=== PATIENT | female | born 1960 | race African-American/Black ===

== ENCOUNTER 2016-07-21 09:41 | Outpatient (CLI) | payer OTHER ==
[2016-07-21 10:39] LABS: Hemoglobin A1c 6.5 % (4.0-6.0)
[2016-07-21 10:41] LABS: ALT (SGPT) 19 U/L (8-55); AST (SGOT) 16 U/L (5-34); Albumin 4.2 g/dL (3.5-5.0); Alkaline Phosphatase 57 U/L (40-150); Anion Gap 15 mmol/L (10-20); BUN (Urea Nitrogen) 13 mg/dL (9.8-20.1); Bilirubin, Total 0.5 mg/dL (0.2-1.2); Calc. Creatinine Clearance 0 mL/min (70-130); Calcium 9.6 mg/dL (7.8-10.44); Carbon Dioxide 22 mmol/L (22-29); Cardiac Risk 5.2 (Less than 4.5); Chloride 106 mmol/L (98-107); Cholesterol 215 mg/dl (< 200 Desired); Estimated GFR-MDRD 78; Glucose 147 mg/dL (70-105); HDL Cholesterol 41 mg/dL (>60 Neg Risk); LDL Cholesterol, Calculated 131 mg/dL; Potassium 3.9 mmol/L (3.5-5.1); Protein, Total 7.2 g/dL (6.0-8.3); Sodium 139 mmol/L (136-145); Triglycerides 217 mg/dL (Less than 150)
[2016-07-21 10:57] LABS: Thyroid Stimulating Hormone 1.8353 uIU/mL (0.35-4.94); Vitamin D, 25 Hydroxy 19.2 ng/ml (> 30.0)
[2016-07-21 11:00] LABS: Bilirubin Negative (Negative); Blood, Urine Negative (Negative); Clarity Clear (Clear); Glucose, Urine (Dipstick) Negative (Negative); Leukocyte Negative (Negative); Nitrite Negative (Negative); Protein, Urine (Dipstick) Negative (Neg-Trace); Urobilinogen 0.2 mg/dL (0.2-1.0)
[2016-07-21 11:01] LABS: Bacteria/HPF Rare-Few HPF (None Seen); RBC/HPF 0-3 HPF (0-3); Squamous Epithelial 0-3 HPF (0-3); WBC/HPF None Seen HPF (0-3)
[2016-07-21 11:08] LABS: #Basophils 0.1 thou/uL (0.0-0.2); #Eosinphils 0.2 thou/uL (0.0-0.7); #Lymphocytes 2.4 thou/uL (1.20-3.40); #Monocytes 0.3 thou/uL (0.11-0.59); #Neutrophils 3.1 thou/uL (1.40-6.50); %Eosinophils 3.6 % (0.0-10.0); %Lymphocytes 39.1 % (21.0-51.0); %Monocytes 5.5 % (0.0-10.0); %Neutrophils 50.8 % (42.0-75.0); Hemoglobin 15.1 g/dL (12.0-16.0); Mean Corpuscular Hemoglobin 33.5 pg (27.0-31.0); Mean Corpuscular Volume 92.8 fl (81.0-99.0); Mean Platelet Volume 9.4 fL (7.4-10.4); Platelet Count 208 thou/uL (130-400); RBC Distribution Width 11.4 % (11.5-14.5); Red Blood Cell (RBC) Count 4.52 mill/uL (4.20-5.40); White Blood Cell (WBC) Count 6.1 thou/uL (4.8-10.8)
== END 2016-07-21 09:42 | disposition home or self-care (01) ==
LOC: MADLABBHPM 09:41
PROVIDERS: ATTEND Family Medicine
DX: E78.5 Hyperlipidemia, unspecified (principal); R73.03 Prediabetes; F17.200 Nicotine dependence, unspecified, uncomplicated; F32.9 Major depressive disorder, single episode, unspecified; I10 Essential (primary) hypertension
CPT/HCPCS: 36415; 80053; 80061; 81001; 82306; 83036; 84443; 85025

== ENCOUNTER 2016-09-27 18:31 | Emergency (ER) | payer OTHER ==
[~2016-09-27 18:31] MED LIST: Sodium Chloride 0.9% 1,000 ML BAG ONE
[2016-09-27 19:07] LABS: Bilirubin Negative (Negative); Blood, Urine Trace (Negative); Clarity Hazy (Clear); Glucose, Urine (Dipstick) 500 mg/dL (Negative); Leukocyte Negative (Negative); Nitrite Negative (Negative); Protein, Urine (Dipstick) Negative (Neg-Trace); Urobilinogen 0.2 mg/dL (0.2-1.0)
[2016-09-27 19:15] LABS: Bacteria/HPF Rare-Few HPF (None Seen); RBC/HPF 0-3 HPF (0-3); Trichomonas/HPF Rare HPF (None Seen); WBC/HPF 0-3 HPF (0-3)
[2016-09-27] MEDS ORDERED: metroNIDAZOLE 250 MG TAB ONE (19:44)
[2016-09-27 19:53] LABS: ALT (SGPT) 17 U/L (8-55); AST (SGOT) 12 U/L (5-34); Albumin 4.1 g/dL (3.5-5.0); Alkaline Phosphatase 65 U/L (40-150); Anion Gap 18 mmol/L (10-20); BUN (Urea Nitrogen) 16 mg/dL (9.8-20.1); Bilirubin, Total 0.3 mg/dL (0.2-1.2); Calc. Creatinine Clearance 0 mL/min (70-130); Calcium 9.8 mg/dL (7.8-10.44); Carbon Dioxide 22 mmol/L (22-29); Chloride 99 mmol/L (98-107); Estimated GFR-MDRD 45; Globulin 3.6 g/dL (2.4-3.5); Glucose 441 mg/dL (70-105); Potassium 3.5 mmol/L (3.5-5.1); Protein, Total 7.7 g/dL (6.0-8.3); Sodium 135 mmol/L (136-145)
[2016-09-27 19:57] LABS: Lymphocytes 36 % (21-51); MDiff Complete? YES; Mean Corpuscular HGB CONC 35.1 g/dL (32.0-36.0); Mean Corpuscular Hemoglobin 32.7 pg (27.0-31.0); Mean Corpuscular Volume 93.2 fl (81.0-99.0); Mean Platelet Volume 9.1 fL (7.4-10.4); Monocytes 4 % (0-10); Neutrophil 60 % (42-75); PLT Morphology Comment Appears Adequate; Platelet Count 226 thou/uL (130-400); RBC Distribution Width 11.3 % (11.5-14.5); Red Blood Cell (RBC) Count 3.98 mill/uL (4.20-5.40); White Blood Cell (WBC) Count 7.7 thou/uL (4.8-10.8)
== END 2016-09-27 20:48 | disposition home or self-care (01) ==
LOC: MADERS 18:31
DX: E11.65 Type 2 diabetes mellitus with hyperglycemia (principal); E78.5 Hyperlipidemia, unspecified; I10 Essential (primary) hypertension; F17.210 Nicotine dependence, cigarettes, uncomplicated; Z79.899 Other long term (current) drug therapy
CPT/HCPCS: 36416; 80053; 81001; 85025; 96360; J7050

== ENCOUNTER 2016-09-28 17:13 | Emergency (ER) | payer OTHER ==
[2016-09-28] MEDS ORDERED: Insulin Regular 300 UNITS/3 ML VIAL ONE (18:02)
== END 2016-09-28 19:31 | disposition home or self-care (01) ==
LOC: MADERS 17:13
DX: E11.01 Type 2 diabetes mellitus with hyperosmolarity with coma (principal); A59.9 Trichomoniasis, unspecified; E78.5 Hyperlipidemia, unspecified; I10 Essential (primary) hypertension; F17.210 Nicotine dependence, cigarettes, uncomplicated; Z79.899 Other long term (current) drug therapy
CPT/HCPCS: 36416; 99284; J1815

== ENCOUNTER 2016-09-29 09:14 | Outpatient (CLI) | payer OTHER ==
[2016-09-29 09:39] LABS: Hemoglobin A1c 9.2 % (4.0-6.0)
[2016-09-29 09:46] LABS: Cardiac Risk 6.1 (Less than 4.5)
== END 2016-09-29 09:15 | disposition home or self-care (01) ==
LOC: MADLABBHPM 09:14
PROVIDERS: ATTEND Family Medicine
DX: E78.2 Mixed hyperlipidemia (principal); E11.9 Type 2 diabetes mellitus without complications
CPT/HCPCS: 36415; 80061; 83036

== ENCOUNTER 2016-10-14 14:05 | Emergency (ER) | payer OTHER ==
[2016-10-14 15:12] LABS: #Basophils 0.1 thou/uL (0.0-0.2); #Eosinphils 0.2 thou/uL (0.0-0.7); #Lymphocytes 2.4 thou/uL (1.20-3.40); #Monocytes 0.4 thou/uL (0.11-0.59); #Neutrophils 4.6 thou/uL (1.40-6.50); %Eosinophils 2.6 % (0.0-10.0); %Lymphocytes 31.9 % (21.0-51.0); %Monocytes 4.7 % (0.0-10.0); %Neutrophils 59.8 % (42.0-75.0); Hemoglobin 12.4 g/dL (12.0-16.0); Mean Corpuscular HGB CONC 35.2 g/dL (32.0-36.0); Mean Corpuscular Hemoglobin 32.4 pg (27.0-31.0); Mean Platelet Volume 7.7 fL (7.4-10.4); Platelet Count 249 thou/uL (130-400); RBC Distribution Width 10.9 % (11.5-14.5); Red Blood Cell (RBC) Count 3.84 mill/uL (4.20-5.40); White Blood Cell (WBC) Count 7.6 thou/uL (4.8-10.8)
[2016-10-14 15:15] LABS: PTT 28.2 SEC (22.9-36.1)
[2016-10-14 15:16] LABS: INR-International Normal Ratio 1.2; Prothrombin Time 15.7 SEC (12.0-14.7)
[2016-10-14 15:25] LABS: ALT (SGPT) 17 U/L (8-55); AST (SGOT) 12 U/L (5-34); Albumin 4.2 g/dL (3.5-5.0); Alkaline Phosphatase 54 U/L (40-150); Anion Gap 14 mmol/L (10-20); BUN (Urea Nitrogen) 11 mg/dL (9.8-20.1); Bilirubin, Total 0.6 mg/dL (0.2-1.2); Calc. Creatinine Clearance 0 mL/min (70-130); Calcium 9.7 mg/dL (7.8-10.44); Carbon Dioxide 24 mmol/L (22-29); Chloride 103 mmol/L (98-107); Estimated GFR-MDRD 62; Globulin 3.5 g/dL (2.4-3.5); Glucose 172 mg/dL (70-105); Magnesium 1.8 mg/dL (1.6-2.6); Potassium 3.2 mmol/L (3.5-5.1); Protein, Total 7.7 g/dL (6.0-8.3); Sodium 138 mmol/L (136-145)
--- NOTE | 2016-10-14 15:26 | RAD ---
PORTABLE CHEST: History: Dizziness, vomiting. Comparison: 08-02-14 FINDINGS: Heart size and mediastinum are within normal limits. Lungs are clear of infiltrates. No signs of asp iration. IMPRESSION: No active intrathoracic disease. POS: [facility]
[2016-10-14 16:01] LABS: Clarity Clear (Clear)
[2016-10-14 16:02] LABS: Bacteria/HPF Rare-Few HPF (None Seen); Bilirubin Negative (Negative); Blood, Urine Negative (Negative); Glucose, Urine (Dipstick) Negative (Negative); Leukocyte Negative (Negative); Nitrite Negative (Negative); Protein, Urine (Dipstick) Negative (Neg-Trace); RBC/HPF 0-3 HPF (0-3); Specific Gravity, Urine 1.005 (1.002-1.036); Squamous Epithelial 0-3 HPF (0-3); Urobilinogen 0.2 mg/dL (0.2-1.0); WBC/HPF None Seen HPF (0-3)
== END 2016-10-14 18:30 | disposition home or self-care (01) ==
LOC: MADERS 14:05
DX: E87.6 Hypokalemia (principal); E11.9 Type 2 diabetes mellitus without complications; E78.5 Hyperlipidemia, unspecified; I10 Essential (primary) hypertension; F17.210 Nicotine dependence, cigarettes, uncomplicated
CPT/HCPCS: 36416; 71010; 80053; 81001; 83735; 83880; 85025; 85610; 85730; 87086; 93005; 94760

== ENCOUNTER 2016-11-11 17:06 | Emergency (ER) | payer OTHER | END 2016-11-11 17:40 | disposition home or self-care (01) | LOC: MADERS 17:06 | DX: S39.92XA Unspecified injury of lower back, initial encounter (principal); E11.9 Type 2 diabetes mellitus without complications; E78.5 Hyperlipidemia, unspecified; I10 Essential (primary) hypertension; F17.210 Nicotine dependence, cigarettes, uncomplicated; Z79.84 Long term (current) use of oral hypoglycemic drugs; Z79.899 Other long term (current) drug therapy; Y04.8XXA Assault by other bodily force, initial encounter | CPT/HCPCS: 99283 ==

== ENCOUNTER 2017-04-04 12:31 | Outpatient (CLI) | payer OTHER ==
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
== END 2017-04-04 12:32 | disposition home or self-care (01) ==
LOC: MADRAD 12:31
PROVIDERS: ATTEND Family Medicine
DX: M47.26 Other spondylosis with radiculopathy, lumbar region (principal); M43.16 Spondylolisthesis, lumbar region
CPT/HCPCS: 72100

== ENCOUNTER 2017-08-05 14:11 | Emergency (ER) | payer OTHER ==
[2017-08-05] MEDS ORDERED: Tetracaine 0.5% OPHTH SOLN/PF 4 ML BOT ONE (14:33)
[2017-08-05] MEDS ORDERED: Tobramycin Sulfate 0.3% Ophth Susp 5 ml Bottle ONE (14:51)
== END 2017-08-05 14:50 | disposition home or self-care (01) ==
LOC: MADERS 14:11
DX: S05.02XA Injury of conjunctiva and corneal abrasion without foreign body, left eye, initial encounter (principal); E11.9 Type 2 diabetes mellitus without complications; E78.5 Hyperlipidemia, unspecified; I10 Essential (primary) hypertension; F17.210 Nicotine dependence, cigarettes, uncomplicated; Z79.84 Long term (current) use of oral hypoglycemic drugs; Z79.899 Other long term (current) drug therapy; W22.8XXA Striking against or struck by other objects, initial encounter
CPT/HCPCS: 99283

== ENCOUNTER 2017-08-31 07:55 | Outpatient (CLI) | payer OTHER ==
[2017-08-31 08:56] LABS: ALT (SGPT) 11 U/L (8-55); AST (SGOT) 11 U/L (5-34); Albumin 4.2 g/dL (3.5-5.0); Alkaline Phosphatase 39 U/L (40-150); Anion Gap 14 mmol/L (10-20); BUN (Urea Nitrogen) 11 mg/dL (9.8-20.1); Bilirubin, Total 1.1 mg/dL (0.2-1.2); Calc. Creatinine Clearance 0 mL/min (70-130); Calcium 9.9 mg/dL (7.8-10.44); Carbon Dioxide 23 mmol/L (22-29); Cardiac Risk 4.9 (Less than 4.5); Chloride 107 mmol/L (98-107); Cholesterol 193 mg/dl (< 200 Desired); Estimated GFR-MDRD 75; Globulin 3.3 g/dL (2.4-3.5); Glucose 101 mg/dL (70-105); HDL Cholesterol 39 mg/dL (>60 Neg Risk); LDL Cholesterol, Calculated 112 mg/dL; Potassium 3.6 mmol/L (3.5-5.1); Protein, Total 7.5 g/dL (6.0-8.3); Sodium 140 mmol/L (136-145); Triglycerides 211 mg/dL (Less than 150)
--- NOTE | 2017-08-31 09:51 | ULT ---
RIGHT UPPER QUADRANT ULTRASOUND: HISTORY: Right-sided pain x 3 weeks. History of gallbladder surgery in 1995. FINDINGS: Real-time imaging of the right upper quadrant shows postop cholecystectomy change. The common duct i s in the 2-3 mm range. Visualized liver parenchyma shows no abnormality. Pancreas is partially obsc ured. The right kidney is normal in size and not obstructed. IMPRESSION: Postop cholecystectomy change. POS: [facility]
[2017-08-31 17:25] LABS: Hemoglobin A1c 5.8 % (4.0-6.0)
[2017-08-31 17:52] LABS: Creatinine, Urine 51.75 mg/dL (47-110); Microalbumin Urine Less than 1.0 mg/dL (0.5-50.0)
== END 2017-08-31 07:56 | disposition home or self-care (01) ==
LOC: MADLABBHPM 07:55
PROVIDERS: ATTEND Family Medicine
DX: E78.2 Mixed hyperlipidemia (principal); E11.22 Type 2 diabetes mellitus with diabetic chronic kidney disease; N18.2 Chronic kidney disease, stage 2 (mild); E55.9 Vitamin D deficiency, unspecified
CPT/HCPCS: 36415; 76705; 80053; 80061; 82043; 82306; 83036

== ENCOUNTER 2017-09-08 16:47 | Emergency (ER) | payer OTHER | END 2017-09-08 17:30 | disposition left against medical advice (07) | LOC: MADERS 16:47 | DX: Z53.21 Procedure and treatment not carried out due to patient leaving prior to being seen by health care provider (principal); E11.9 Type 2 diabetes mellitus without complications; E78.5 Hyperlipidemia, unspecified; I10 Essential (primary) hypertension; F17.210 Nicotine dependence, cigarettes, uncomplicated; Z79.899 Other long term (current) drug therapy; Z79.84 Long term (current) use of oral hypoglycemic drugs ==

== ENCOUNTER 2017-10-06 09:58 | Outpatient (CLI) | payer OTHER ==
--- NOTE | 2017-10-06 10:52 | RAD ---
RIGHT SHOULDER THREE VIEWS: HISTORY: Anterior shoulder pain. COMPARISON: Chest radiograph from 10/14/2016. FINDINGS: There is extensive calcific tendinosis of the supraspinatus tendon. Moderate degenerative disease of the acromioclavicular joint. The visualized ribs are unremarkable. IMPRESSION: Extensive calcific tendinosis of the rotator cuff. Ultrasound guided aspiration may be beneficial in this patient. POS: [facility]
--- NOTE | 2017-10-06 11:06 | RAD ---
LUMBAR SPINE THREE VIEWS: HISTORY: Lumbalgia with sciatica. COMPARISON: Lumbar spine radiographs from 04/04/2017. FINDINGS: The right upper quadrant has surgical clips. No acute fracture or malalignment. There is anterolist hesis of L3/L4, approximately 4 mm, in the neutral position. This has slightly progressed from the c omparison examination. Possible bilateral pars interarticularis defects at L3. Minimal narrowing of the L5-S1 disk space. Laminectomy changes, lower lumbar spine. IMPRESSION: Possible pars interarticularis defects at L3 bilaterally with 4 mm retrolisthesis. This has progress ed from the comparison examination. MRI may be beneficial. POS: [facility]
[2017-10-06 17:11] LABS: Syphilis Antibody Nonreactive (Nonreactive); Syphilis Antibody Index 0.04 S/CO (<1.00 Non-Reactive)
[2017-10-06 17:12] LABS: HBCM Index 0.06 S/CO (0-0.79); HBSAg Index 0.46 S/CO (0-0.99); HIV (1/2) Antibody/Antigen Non-Reactive (NonReactive); HIV 1/2 INDEX 0.13 S/CO (<1.00); Hep A IgM AB Non-Reactive (NonReactive); Hep A IgM S/CO 0.25 S/CO (0-0.79); Hep B Surf Ag Non-Reactive S/CO (NonReactive); Hep C IgG Ab Non-Reactive (NonReactive); Hepatitis B Core IGM Abs Non-Reactive (NonReactive)
== END 2017-10-06 09:59 | disposition home or self-care (01) ==
LOC: MADLAB 09:58
PROVIDERS: ATTEND Family Medicine
DX: N89.8 Other specified noninflammatory disorders of vagina (principal); R10.2 Pelvic and perineal pain; M25.511 Pain in right shoulder; M54.42 Lumbago with sciatica, left side; M54.41 Lumbago with sciatica, right side; M43.16 Spondylolisthesis, lumbar region; M75.31 Calcific tendinitis of right shoulder
CPT/HCPCS: 36415; 72100; 80074; 86694; 86695; 86696; 86780; 87389; 87480; 87491; 87510; 87591; 87660

== ENCOUNTER 2017-10-26 08:47 | Emergency (ER) | payer OTHER ==
[2017-10-26] MEDS ORDERED: HYDROcodone/Acetaminophen 5/325 mg Tablet ONE (09:47)
[2017-10-26] MEDS ORDERED: Dexamethasone 10 MG/ML VIAL ONE (09:47)
[2017-10-26] MEDS ORDERED: Benzonatate 100 MG CAP ONE (09:48)
--- NOTE | 2017-10-26 10:52 | RAD ---
CHEST 2 VIEWS: HISTORY: Cough. COMPARISON: 10/14/16. FINDINGS: Cardiac silhouette is unremarkable. Pulmonary vasculature upper limits of normal. Ill-defined infil trate projects over the left upper lobe. No pleural fluid or pneumothorax. IMPRESSION: Left upper lobe infiltrate. Clinical correlation regarding other signs and symptoms of left upper lo be pneumonitis is required. Please consider close radiographic followup after medical treatment to e valuate for clearing. POS: [facility]
== END 2017-10-26 10:15 | disposition home or self-care (01) ==
LOC: MADERS 08:47
DX: J40 Bronchitis, not specified as acute or chronic (principal); I10 Essential (primary) hypertension; E11.9 Type 2 diabetes mellitus without complications; E78.5 Hyperlipidemia, unspecified; F17.210 Nicotine dependence, cigarettes, uncomplicated; Z79.84 Long term (current) use of oral hypoglycemic drugs; Z79.899 Other long term (current) drug therapy
CPT/HCPCS: 71046; 87804; 96372; J1100

== ENCOUNTER 2017-11-01 08:35 | Emergency (ER) | payer OTHER | END 2017-11-01 09:14 | disposition home or self-care (01) | LOC: MADERS 08:35 | DX: K05.10 Chronic gingivitis, plaque induced (principal); E11.9 Type 2 diabetes mellitus without complications; I10 Essential (primary) hypertension; E78.00 Pure hypercholesterolemia, unspecified; F17.210 Nicotine dependence, cigarettes, uncomplicated | CPT/HCPCS: 36416; 99282 ==

== ENCOUNTER 2018-01-02 11:45 | Outpatient (CLI) | payer OTHER ==
[2018-01-02 12:18] LABS: Anion Gap 14 mmol/L (10-20); BUN (Urea Nitrogen) 16 mg/dL (9.8-20.1); Calc. Creatinine Clearance 0 mL/min (70-130); Calcium 9.6 mg/dL (7.8-10.44); Carbon Dioxide 23 mmol/L (22-29); Chloride 108 mmol/L (98-107); Estimated GFR-MDRD 60; Glucose 116 mg/dL (70-105); Potassium 3.6 mmol/L (3.5-5.1); Sodium 141 mmol/L (136-145)
--- NOTE | 2018-01-02 13:15 | ULT ---
RENAL ULTRASOUND: History: Chronic kidney disease. Technique: Multiplanar grayscale and color doppler images were obtained in a renal ultrasound. FINDINGS: The kidneys are normal in echogencity without hydronephrosis or calculi and measure 11.6 and 9.5 cm i n length, on the right and left respectively. Limited visualization of the urinary bladder is unremar kable. IMPRESSION: Unremarkable renal ultrasound. POS: [facility]
[2018-01-02 17:19] LABS: Creatinine, Urine 72.46 mg/dL (47-110); Protein, Urine Random Quant Less than 10 mg/dL (1-14)
== END 2018-01-02 11:46 | disposition home or self-care (01) ==
LOC: MADLAB 11:45
PROVIDERS: ATTEND Internal Medicine Nephrology
DX: N20.0 Calculus of kidney (principal); N18.1 Chronic kidney disease, stage 1
CPT/HCPCS: 36415; 76770; 80048; 82570; 84156

== ENCOUNTER 2018-04-14 12:40 | Emergency (ER) | payer OTHER ==
--- NOTE | 2018-04-14 15:40 | RAD ---
LEFT KNEE 4 VIEWS: DATE: 04/14/2018. COMPARISON: None. HISTORY: Left knee pain. FINDINGS: There is osteophyte formation involving the medial femoral condyle, medial tibial plateau. Linear os sification of left medial femoral condyle suggests prior MCL injury. No displaced fracture or eviden ce of dislocation. No radiopaque foreign body or subcutaneous gas. There is a probable small knee j oint effusion. IMPRESSION: Degenerative changes as detailed above. Small nonspecific knee joint effusion with no fracture or ev idence of dislocation. POS: [facility]
== END 2018-04-14 13:46 | disposition home or self-care (01) ==
LOC: MADERS 12:40
DX: S83.92XA Sprain of unspecified site of left knee, initial encounter (principal); S86.912A Strain of unspecified muscle(s) and tendon(s) at lower leg level, left leg, initial encounter; E11.9 Type 2 diabetes mellitus without complications; I10 Essential (primary) hypertension; E78.00 Pure hypercholesterolemia, unspecified; F17.210 Nicotine dependence, cigarettes, uncomplicated; Z79.899 Other long term (current) drug therapy; Z79.84 Long term (current) use of oral hypoglycemic drugs; X58.XXXA Exposure to other specified factors, initial encounter

== ENCOUNTER 2018-07-02 18:17 | Emergency (ER) | payer OTHER ==
[2018-07-02 18:33] LABS: Bilirubin Negative (Negative); Blood, Urine Negative (Negative); Clarity Clear (Clear); Glucose, Urine (Dipstick) Negative (Negative); Leukocyte Negative (Negative); Nitrite Negative (Negative); Protein, Urine (Dipstick) Negative (Neg-Trace); Urobilinogen 0.2 mg/dL (0.2-1.0)
== END 2018-07-02 18:50 | disposition home or self-care (01) ==
LOC: MADERS 18:17
DX: R30.0 Dysuria (principal); F17.210 Nicotine dependence, cigarettes, uncomplicated; E11.9 Type 2 diabetes mellitus without complications; I10 Essential (primary) hypertension; E78.00 Pure hypercholesterolemia, unspecified; Z79.84 Long term (current) use of oral hypoglycemic drugs; Z79.899 Other long term (current) drug therapy; Z79.891 Long term (current) use of opiate analgesic
CPT/HCPCS: 81003; 87086; 99283

== ENCOUNTER 2018-10-12 19:16 | Emergency (ER) | payer OTHER ==
[~2018-10-12 19:16] MED LIST changes: -Sodium Chloride 0.9% 1,000 ML BAG ONE; +Sodium Chloride Irrig Solution 250 ML BOT ONE
[2018-10-12] MEDS ORDERED: Lidocaine 1% w/Epinephrine 1:100K 20 ML VIAL ONE (20:08)
[2018-10-12] MEDS ORDERED: Sulfameth/Trimethoprim DS 800-160mg TAB ONE (20:29)
== END 2018-10-12 20:35 | disposition home or self-care (01) ==
LOC: MADERS 19:16
DX: L02.413 Cutaneous abscess of right upper limb (principal); E11.9 Type 2 diabetes mellitus without complications; I10 Essential (primary) hypertension; E78.00 Pure hypercholesterolemia, unspecified; F17.210 Nicotine dependence, cigarettes, uncomplicated
CPT/HCPCS: 10060; J2001

== ENCOUNTER 2018-10-18 08:08 | Outpatient (CLI) | payer OTHER ==
--- NOTE | 2018-10-18 08:45 | RAD ---
CHEST 2 VIEWS: COMPARISON: 10/26/2017. HISTORY: Bacterial pneumonia. FINDINGS: Normal cardiac silhouette. The pulmonary vessels and hilum are normal. Costophrenic angles are rosanne r. Chronic changes of the lung parenchyma, without consolidation or mass. No pneumothorax or osseou s abnormalities. IMPRESSION: Presumed chronic changes in the lung parenchyma without focal consolidation. POS: [facility]
[2018-10-18 09:14] LABS: ALT (SGPT) 12 U/L (8-55); AST (SGOT) 11 U/L (5-34); Alkaline Phosphatase 41 U/L (40-150); Anion Gap 13 mmol/L (10-20); BUN (Urea Nitrogen) 9 mg/dL (9.8-20.1); Bilirubin, Total 0.3 mg/dL (0.2-1.2); Calc. Creatinine Clearance 0 mL/min (70-130); Calcium 9.5 mg/dL (7.8-10.44); Carbon Dioxide 24 mmol/L (22-29); Chloride 107 mmol/L (98-107); Cholesterol 180 mg/dl (< 200 Desired); Estimated GFR-MDRD 68; Glucose 151 mg/dL (70-105); HDL Cholesterol 36 mg/dL (>60 Neg Risk); LDL Cholesterol, Calculated 100 mg/dL; Potassium 3.3 mmol/L (3.5-5.1); Sodium 141 mmol/L (136-145); Triglycerides 222 mg/dL (Less than 150)
[2018-10-18 09:16] LABS: #Basophils 0.1 thou/uL (0.0-0.2); #Eosinphils 0.2 thou/uL (0.0-0.7); #Lymphocytes 1.8 thou/uL (1.20-3.40); #Monocytes 0.2 thou/uL (0.11-0.59); #Neutrophils 3.4 thou/uL (1.40-6.50); %Basophils 0.9 % (0.0-1.0); %Eosinophils 4.3 % (0.0-10.0); %Monocytes 4.2 % (0.0-10.0); %Neutrophils 59.7 % (42.0-75.0); Hemoglobin 11.4 g/dL (12.0-16.0); Mean Corpuscular HGB CONC 34.4 g/dL (32.0-36.0); Mean Corpuscular Hemoglobin 32.1 pg (27.0-31.0); Mean Corpuscular Volume 93.5 fL (78.0-98.0); Mean Platelet Volume 7.2 fL (7.4-10.4); Platelet Count 224 thou/uL (130-400); RBC Distribution Width 11.4 % (11.5-14.5); Red Blood Cell (RBC) Count 3.55 mill/uL (4.20-5.40); White Blood Cell (WBC) Count 5.7 thou/uL (4.8-10.8)
[2018-10-18 17:10] LABS: Hemoglobin A1c 6.4 % (4.0-6.0)
== END 2018-10-18 08:09 | disposition home or self-care (01) ==
LOC: MADLABBHPM 08:08
PROVIDERS: ATTEND Family Medicine
DX: E11.22 Type 2 diabetes mellitus with diabetic chronic kidney disease (principal); N18.2 Chronic kidney disease, stage 2 (mild); E78.2 Mixed hyperlipidemia; E55.9 Vitamin D deficiency, unspecified; Z87.01 Personal history of pneumonia (recurrent)
CPT/HCPCS: 36415; 71046; 80053; 80061; 82306; 83036; 85025

== ENCOUNTER 2018-12-17 13:22 | Outpatient (CLI) | payer OTHER ==
[2018-12-17 13:39] LABS: #Eosinphils 0.2 thou/uL (0.0-0.7); #Lymphocytes 1.7 thou/uL (1.20-3.40); #Monocytes 0.4 thou/uL (0.11-0.59); #Neutrophils 3.8 thou/uL (1.40-6.50); %Basophils 0.8 % (0.0-1.0); %Eosinophils 3.8 % (0.0-10.0); %Lymphocytes 27.5 % (21.0-51.0); %Monocytes 6.8 % (0.0-10.0); %Neutrophils 61.1 % (42.0-75.0); Hemoglobin 11.6 g/dL (12.0-16.0); Mean Corpuscular HGB CONC 32.7 g/dL (32.0-36.0); Mean Corpuscular Volume 97.9 fL (78.0-98.0); Mean Platelet Volume 7.3 fL (7.4-10.4); Platelet Count 255 thou/uL (130-400); RBC Distribution Width 11.3 % (11.5-14.5); Red Blood Cell (RBC) Count 3.64 mill/uL (4.20-5.40); White Blood Cell (WBC) Count 6.2 thou/uL (4.8-10.8)
[2018-12-17 14:05] LABS: ALT (SGPT) 14 U/L (8-55); AST (SGOT) 12 U/L (5-34); Albumin 4.3 g/dL (3.5-5.0); Alkaline Phosphatase 47 U/L (40-110); Anion Gap 14 mmol/L (10-20); BUN (Urea Nitrogen) 10 mg/dL (9.8-20.1); Bilirubin, Total 0.4 mg/dL (0.2-1.2); Calc. Creatinine Clearance 0 mL/min (70-130); Calcium 9.8 mg/dL (7.8-10.44); Carbon Dioxide 26 mmol/L (22-29); Chloride 104 mmol/L (98-107); Estimated GFR-MDRD 59; Globulin 3.1 g/dL (2.4-3.5); Glucose 144 mg/dL (70-105); Potassium 3.3 mmol/L (3.5-5.1); Protein, Total 7.4 g/dL (6.0-8.3); Sodium 141 mmol/L (136-145)
[2018-12-17 21:47] LABS: Hemoglobin A1c 5.9 % (4.0-6.0)
== END 2018-12-17 13:23 | disposition home or self-care (01) ==
LOC: MADRAD 13:22
PROVIDERS: ATTEND Family Medicine
DX: Z01.818 Encounter for other preprocedural examination (principal)
CPT/HCPCS: 36415; 80053; 83036; 85025

== ENCOUNTER 2019-08-15 09:27 | Outpatient (CLI) | payer OTHER ==
--- NOTE | 2019-08-15 10:00 | RAD ---
EXAM: 4 views of the right knee HISTORY: Chronic knee pain COMPARISON: None FINDINGS: No knee effusion is seen. There is no evidence of acute fracture or dislocation. Moderate m edial and lateral femorotibial degenerative changes are seen. No soft tissue swelling is present. IMPRESSION: Moderate right knee osteoarthritis
--- NOTE | 2019-08-15 10:03 | RAD ---
Exam:4 views left neural HISTORY: Pain COMPARISON: 04/14/2018 FINDINGS: No joint effusion. Preserved joint spaces. No fracture or malalignment.. Stable osteophyte formation along the medial femoral condyle and medial tibial plateau. IMPRESSION: No significant interval change. Stable osteophyte formation along the medial femoral cond yle and medial tibial plateau.
[2019-08-15 10:13] LABS: #Basophils 0.1 thou/uL (0.0-0.2); #Eosinphils 0.4 thou/uL (0.0-0.7); #Monocytes 0.4 thou/uL (0.11-0.59); #Neutrophils 3.6 thou/uL (1.40-6.50); %Basophils 1.6 % (0.0-1.0); %Eosinophils 5.7 % (0.0-10.0); %Lymphocytes 31.8 % (21.0-51.0); %Monocytes 5.6 % (0.0-10.0); %Neutrophils 55.4 % (42.0-75.0); Hemoglobin 12.3 g/dL (12.0-16.0); Mean Corpuscular HGB CONC 32.2 g/dL (32.0-36.0); Mean Corpuscular Hemoglobin 31.3 pg (27.0-31.0); Mean Corpuscular Volume 97.1 fL (78.0-98.0); Platelet Count 268 thou/uL (130-400); RBC Distribution Width 11.7 % (11.5-14.5); Red Blood Cell (RBC) Count 3.92 mill/uL (4.20-5.40); White Blood Cell (WBC) Count 6.4 thou/uL (4.8-10.8)
[2019-08-15 10:27] LABS: ALT (SGPT) 15 U/L (8-55); AST (SGOT) 13 U/L (5-34); Albumin 4.3 g/dL (3.5-5.0); Alkaline Phosphatase 43 U/L (40-110); Anion Gap 14 mmol/L (10-20); BUN (Urea Nitrogen) 10 mg/dL (9.8-20.1); Bilirubin, Total 0.5 mg/dL (0.2-1.2); Calc. Creatinine Clearance 0 mL/min (70-130); Calcium 9.7 mg/dL (7.8-10.44); Carbon Dioxide 26 mmol/L (22-29); Cardiac Risk 4.2 (Less than 4.5); Chloride 106 mmol/L (98-107); Cholesterol 177 mg/dl (< 200 Desired); Estimated GFR-MDRD 67; Globulin 3.1 g/dL (2.4-3.5); Glucose 111 mg/dL (70-105); HDL Cholesterol 42 mg/dL (>60 Neg Risk); LDL Cholesterol, Calculated 93 mg/dL; Protein, Total 7.4 g/dL (6.0-8.3); Sodium 142 mmol/L (136-145); Triglycerides 208 mg/dL (Less than 150)
[2019-08-15 17:09] LABS: Hemoglobin A1c 5.8 % (4.0-6.0)
[2019-08-15 19:14] LABS: Creatinine, Urine 42.31 mg/dL (47-110); Microalbumin Urine Less than 1.0 mg/dL (0.5-50.0)
== END 2019-08-15 09:28 | disposition home or self-care (01) ==
LOC: MADRAD 09:27
PROVIDERS: ATTEND Family Medicine
DX: M25.561 Pain in right knee (principal); M25.562 Pain in left knee; I12.9 Hypertensive chronic kidney disease with stage 1 through stage 4 chronic kidney disease, or unspecified chronic kidney disease; E11.22 Type 2 diabetes mellitus with diabetic chronic kidney disease; N18.2 Chronic kidney disease, stage 2 (mild); E55.9 Vitamin D deficiency, unspecified; E78.2 Mixed hyperlipidemia; M17.11 Unilateral primary osteoarthritis, right knee
CPT/HCPCS: 36415; 80053; 80061; 82043; 82306; 83036; 85025

== ENCOUNTER 2020-01-13 09:31 | Emergency (ER) | payer OTHER ==
[2020-01-13] MEDS ORDERED: Mag-Al Plus 1200 MG/1200 MG/120 MG/30 ML UDCUP ONE (09:58)
[2020-01-13] MEDS ORDERED: Lidocaine Viscous Sol 2% 15 ml UD Cup ONE (09:58)
[2020-01-13 10:33] LABS: #Basophils 0.1 thou/uL (0.0-0.2); #Eosinphils 0.2 thou/uL (0.0-0.7); #Lymphocytes 2.1 thou/uL (1.20-3.40); #Monocytes 0.5 thou/uL (0.11-0.59); #Neutrophils 5.7 thou/uL (1.40-6.50); %Basophils 0.6 % (0.0-1.0); %Eosinophils 2.3 % (0.0-10.0); %Lymphocytes 24.7 % (21.0-51.0); %Monocytes 6.2 % (0.0-10.0); %Neutrophils 66.1 % (42.0-75.0); Hemoglobin 12.4 g/dL (12.0-16.0); Mean Corpuscular HGB CONC 33.7 g/dL (32.0-36.0); Mean Corpuscular Hemoglobin 32.6 pg (27.0-31.0); Mean Corpuscular Volume 96.8 fL (78.0-98.0); Mean Platelet Volume 7.6 fL (7.4-10.4); Platelet Count 236 thou/uL (130-400); RBC Distribution Width 11.2 % (11.5-14.5); Red Blood Cell (RBC) Count 3.79 mill/uL (4.20-5.40); White Blood Cell (WBC) Count 8.6 thou/uL (4.8-10.8)
[2020-01-13 10:49] LABS: Anion Gap 15 mmol/L (10-20); BUN (Urea Nitrogen) 23 mg/dL (9.8-20.1); Calc. Creatinine Clearance 0 mL/min (70-130); Carbon Dioxide 22 mmol/L (22-29); Chloride 106 mmol/L (98-107); Estimated GFR-MDRD 72; Potassium 3.7 mmol/L (3.5-5.1); Sodium 139 mmol/L (136-145)
[2020-01-13 10:50] LABS: ALT (SGPT) 33 U/L (8-55); AST (SGOT) 17 U/L (5-34); Albumin 4.1 g/dL (3.5-5.0); Alkaline Phosphatase 40 U/L (40-110); Bilirubin, Total 0.4 mg/dL (0.2-1.2); Calcium 9.2 mg/dL (7.8-10.44); Globulin 2.7 g/dL (2.4-3.5); Glucose 116 mg/dL (70-105); Lipase 19 U/L (8-78); Protein, Total 6.8 g/dL (6.0-8.3)
--- NOTE | 2020-01-13 12:06 | RAD ---
NECK FOR SOFT TISSUES 2 VIEWS: Date: 01/13/2020 HISTORY: Question foreign body. FINDINGS: Epiglottis is normal. prevertebral soft tissues are normal. Airway is patent. No evidence of radiopaq ue foreign body identified. IMPRESSION: Unremarkable soft tissue neck. POS: [facility]
== END 2020-01-13 11:50 | disposition home or self-care (01) ==
LOC: MADERS 09:31
DX: R10.13 Epigastric pain (principal); E11.9 Type 2 diabetes mellitus without complications; I10 Essential (primary) hypertension; E78.00 Pure hypercholesterolemia, unspecified; F17.210 Nicotine dependence, cigarettes, uncomplicated; Z79.84 Long term (current) use of oral hypoglycemic drugs; Z79.899 Other long term (current) drug therapy
CPT/HCPCS: 70360; 80053; 83690; 85025; 93005

== ENCOUNTER 2021-02-19 08:47 | Emergency (ER) | payer OTHER ==
[2021-02-19] MEDS ORDERED: Ketorolac Tromethamine 30 MG/ML VIAL ONE (09:48)
== END 2021-02-19 10:35 | disposition home or self-care (01) ==
LOC: MADERS 08:47
DX: S33.5XXA Sprain of ligaments of lumbar spine, initial encounter (principal); V49.40XA Driver injured in collision with unspecified motor vehicles in traffic accident, initial encounter; I10 Essential (primary) hypertension; E11.9 Type 2 diabetes mellitus without complications; E78.00 Pure hypercholesterolemia, unspecified; F17.210 Nicotine dependence, cigarettes, uncomplicated
CPT/HCPCS: 72131; 96372; J1885

== ENCOUNTER 2022-06-03 12:32 | Emergency (ER) | payer OTHER ==
[2022-06-03] MEDS ORDERED: Albuterol 200 PUFF (6.7GM INHALER) ONE (13:22)
== END 2022-06-03 14:03 | disposition home or self-care (01) ==
LOC: MADERS 12:32
DX: R06.00 Dyspnea, unspecified (principal); I10 Essential (primary) hypertension; K21.9 Gastro-esophageal reflux disease without esophagitis; E11.9 Type 2 diabetes mellitus without complications; E78.00 Pure hypercholesterolemia, unspecified; F17.210 Nicotine dependence, cigarettes, uncomplicated; Z79.84 Long term (current) use of oral hypoglycemic drugs
CPT/HCPCS: 36416; 71046

== ENCOUNTER 2022-10-10 15:08 | Emergency (ER) | payer OTHER | END 2022-10-10 15:55 | disposition home or self-care (01) | LOC: MADERS 15:08 | DX: K12.1 Other forms of stomatitis (principal); K21.9 Gastro-esophageal reflux disease without esophagitis; E11.9 Type 2 diabetes mellitus without complications; I10 Essential (primary) hypertension; E78.00 Pure hypercholesterolemia, unspecified; F17.210 Nicotine dependence, cigarettes, uncomplicated; Z79.84 Long term (current) use of oral hypoglycemic drugs; Z79.899 Other long term (current) drug therapy | CPT/HCPCS: 99282 ==

== ENCOUNTER 2023-03-02 10:21 | Outpatient (CLI) | payer OTHER ==
[2023-03-02 10:47] LABS: #Basophils 0.1 thou/uL (0.0-0.2); #Eosinphils 0.3 thou/uL (0.0-0.7); #Monocytes 0.3 thou/uL (0.11-0.59); #Neutrophils 2.5 thou/uL (1.40-6.50); %Basophils 1.4 % (0.0-1.0); %Eosinophils 4.9 % (0.0-10.0); %Lymphocytes 38.9 % (21.0-51.0); %Neutrophils 48.8 % (42.0-75.0); Hematocrit 42.5 % (36.0-47.0); Hemoglobin 14.2 g/dL (12.0-16.0); Mean Corpuscular HGB CONC 33.4 g/dL (32.0-36.0); Mean Corpuscular Hemoglobin 32.7 pg (27.0-31.0); Mean Corpuscular Volume 97.9 fl (78.0-98.0); Mean Platelet Volume 8.9 fL (7.4-10.4); Platelet Count 253 10x3/uL (130-400); RBC Distribution Width 11.9 % (11.5-14.5); Red Blood Cell (RBC) Count 4.35 mill/uL (4.20-5.40); White Blood Cell (WBC) Count 5.2 10x3/uL (4.8-10.8)
[2023-03-02 10:51] LABS: ALT (SGPT) 10 U/L (8-55); AST (SGOT) 15 U/L (5-34); Albumin 4.1 g/dL (3.4-4.8); Alkaline Phosphatase 56 U/L (40-110); Anion Gap 12 mmol/L (10-20); BUN (Urea Nitrogen) 11 mg/dL (9.8-20.1); Bilirubin, Total 0.6 mg/dL (0.2-1.2); Calc. Creatinine Clearance 0 mL/min (70-130); Calcium 9.5 mg/dL (7.8-10.44); Carbon Dioxide 25 mmol/L (23-31); Cardiac Risk 5.7 (Less than 4.5); Chloride 108 mmol/L (98-107); Cholesterol 212 mg/dl (< 200 Desired); Estimated GFR 66; Globulin 3.4 g/dL (2.4-3.5); Glucose 116 mg/dL (80-115); HDL Cholesterol 37 mg/dL (>60 Neg Risk); LDL Cholesterol, Calculated 136 mg/dL; Protein, Total 7.5 g/dL (5.8-8.1); Sodium 141 mmol/L (136-145); Triglycerides 193 mg/dL (Less than 150)
[2023-03-02 15:59] LABS: Hemoglobin A1c 6.8 % (4.0-6.0)
== END 2023-03-02 10:22 | disposition home or self-care (01) ==
LOC: MADLAB 10:21
PROVIDERS: ATTEND Internal Medicine
DX: J45.909 Unspecified asthma, uncomplicated (principal); E11.9 Type 2 diabetes mellitus without complications; I10 Essential (primary) hypertension; E78.2 Mixed hyperlipidemia; F17.200 Nicotine dependence, unspecified, uncomplicated; E55.9 Vitamin D deficiency, unspecified
CPT/HCPCS: 36415; 71046; 80053; 80061; 82306; 83036; 84443; 85025

== ENCOUNTER 2024-07-02 08:08 | Outpatient (CLI) | payer MEDICAID ==
[2024-07-02] MEDS ORDERED: Iopamidol 370 76% 100 ML VIAL ONE (09:00)
== END 2024-07-02 08:09 | disposition home or self-care (01) ==
LOC: MADLAB 08:08
PROVIDERS: ATTEND Family Medicine
DX: R04.2 Hemoptysis (principal); J98.09 Other diseases of bronchus, not elsewhere classified; J98.11 Atelectasis; R91.8 Other nonspecific abnormal finding of lung field
CPT/HCPCS: 36415; 71260; 82565; Q9967

== ENCOUNTER 2024-09-22 10:04 | Emergency (ER) | payer MEDICAID ==
[2024-09-22] MEDS ORDERED: Cefepime 2 GM VIAL ONE (10:40)
[2024-09-22 10:59] LABS: INR-International Normal Ratio 1.0; Prothrombin Time 13.1 sec (12.0-14.7)
[2024-09-22] MEDS ORDERED: Ondansetron PF 4 MG/2 ML Vial ONE (10:59)
[2024-09-22 11:00] LABS: PTT 36.7 sec (22.9-36.1)
[2024-09-22 11:06] LABS: ALT (SGPT) 8 U/L (Less than 34); AST (SGOT) 13 U/L (11-34); Albumin 3.0 g/dL (3.1-4.5); Alkaline Phosphatase 71 U/L (40-110); Anion Gap 17 mmol/L (10-20); BUN (Urea Nitrogen) 14 mg/dL (9.8-20.1); Bilirubin, Total 0.7 mg/dL (0.3-1.2); Calc. Creatinine Clearance 0 mL/min (70-130); Calcium 9.4 mg/dL (7.8-10.44); Carbon Dioxide 22 mmol/L (23-31); Chloride 100 mmol/L (98-107); Globulin 4.4 g/dL (2.4-3.5); Glucose 310 mg/dL (80-115); Potassium 3.5 mmol/L (3.5-5.1); Sodium 135 mmol/L (136-145)
[2024-09-22 11:14] LABS: Anisocytosis SLIGHT = 6-15 cells (100X) (0-5/hpf); Hematocrit 26.0 % (36.0-47.0); Hemoglobin 8.8 g/dL (12.0-16.0); MDiff Complete? YES; Mean Corpuscular Hemoglobin 28.3 pg (27.0-31.0); Mean Corpuscular Volume 83.0 fl (78.0-98.0); Platelet Adequacy Comment Appears Adequate; Platelet Count 241 10x3/uL (130-400); Red Blood Cell (RBC) Count 3.13 mill/uL (4.20-5.40); Target Cells SLIGHT = 2-5 cells (100X) (0-1/hpf); White Blood Cell (WBC) Count 1.4 10x3/uL (4.8-10.8)
== END 2024-09-22 13:30 | disposition home or self-care (01) ==
LOC: MADERS 10:04
DX: E11.65 Type 2 diabetes mellitus with hyperglycemia (principal); D64.9 Anemia, unspecified; D70.9 Neutropenia, unspecified; R11.2 Nausea with vomiting, unspecified; E87.20 Acidosis, unspecified; I10 Essential (primary) hypertension; Z87.891 Personal history of nicotine dependence
CPT/HCPCS: 36415; 71046; 80053; 83605; 85025; 85610; 85730; 87040; 93005; 94760; 96361; 96365; 96375; J0692; J2405; J7120